=== PATIENT | male | born 1980 | race Caucasian/White ===

== ENCOUNTER 2024-01-28 13:00 | Outpatient (RCR) | payer BC, SELFPAY | END 2024-04-03 15:47 | disposition home or self-care (01) | PROVIDERS: PCP Family Medicine; Visit Provider Family Medicine | DX: M76.61 Achilles tendinitis, right leg (principal); M79.661 Pain in right lower leg; Z51.89 Encounter for other specified aftercare | CPT/HCPCS: 97110; 97140; 97161 ==

== ENCOUNTER 2024-09-26 07:18 | Outpatient (CLI) | payer BC, SELFPAY ==
--- NOTE | 2024-09-26 08:17 | W.ANESCHARGE ---
Anesthesia Charges Start Date/Time Anesthesia Start Date: 09/26/24 Anesthesia Start Time: 07:51 Stop Date/Time Anesthesia Stop Date: 09/26/24 Anesthesia Stop Time: 08:21 Coding CPT Codes CPT Codes: ANES LWR INTST NDSC NOS - 45454 ([id number]) P3 - PATIENT W/SEVERE SYS DISEASE, QX - PUTTY MIXER SVC W/ MD MED DIRECTION, QK - TIRE WRAPPER 2-4 CNCRNT ANES PROC
--- NOTE | 2024-09-26 08:19 | W.ANESCHARGE ---
Anesthesia Charges Start Date/Time Anesthesia Start Date: 09/26/24 Anesthesia Start Time: 07:51 Stop Date/Time Anesthesia Stop Date: 09/26/24 Anesthesia Stop Time: 08:21 Coding CPT Codes CPT Codes: ANES LWR INTST NDSC NOS - 13286 ([id number]) QK - RN TELEPHONIC 2-4 CNCRNT ANES PROC, QX - ORACLE MANUFACTURING CONSULTANT SVC W/ MED DIRECTION, P3 - PATIENT W/SEVERE SYS DISEASE
== END 2024-09-26 07:19 | disposition home or self-care (01) ==
LOC: OP CLINIC 07:20
PROVIDERS: PCP Surgery; Visit Provider Internal Medicine Gastroenterology
DX: Z12.11 Encounter for screening for malignant neoplasm of colon (principal); D12.0 Benign neoplasm of cecum; D12.3 Benign neoplasm of transverse colon; D12.5 Benign neoplasm of sigmoid colon; K57.30 Diverticulosis of large intestine without perforation or abscess without bleeding
CPT/HCPCS: 00811; 45385; 88305; J2704

== ENCOUNTER 2025-02-12 13:56 | Emergency (ER) | payer BC, SELFPAY ==
--- OUTSIDE RECORDS SUMMARY | 2025-02-12 13:57 | XMS_ITS | Clinical Summary ---
Author Organization [facility] Address [address] [place] [id number] Care Team Providers Care Bilingual Office Assistant Name Role Phone Rupreto Duff MD Primary Care Provider [phone] Allergies Active Allergy Reactions Criticality Noted Date Comments House Dust 12/09/2010 Medications aspirin chewable 81 mg chewable tablet Take 81 mg by mouth once daily with a meal. Active DMEIndications:S easonal affective disorder Phototherapy Light box. Use 10-15 minutes daily for seasonal affective disorder. Can increase to 30 minutes twice daily as needed. 1 box 7 Active atorvastatin (LIPITOR) 40 mg tabletIndication s:Coronary artery disease involving elem heart without angina pectoris, unspecified vessel or lesion type Take 1 Tablet (40 mg) by mouth once daily. 90 Tablet 3 4 Active losartan (COZAAR) 100 mg tabletIndication s:Essential hypertension Take 1 Tablet (100 mg) by mouth once daily. 90 Tablet 3 4 Active Additional Information Patient not taking.Reported on 02/10/2025 omeprazole (PRILOSEC) 20 mg Delayed-Release capsuleIndicatio ns:Chronic GERD Take 1 Capsule (20 mg) by mouth once daily before a meal. 90 Capsule 3 4 Active polyethylene glycol-electroly te (GOLYTELY) 236-22.74-6.74 -5.86 gram suspensionIndica tions:Encounter for screening colonoscopy Drink 2 liters the day before the procedure and 2 liters 6 hours prior to procedure. 4000 mL 4 Active Additional Information Patient not taking.Reported on 02/10/2025 hydroCHLOROthiaz mavis 12.5 mg tabletIndication s:Essential hypertension Take 1 Tablet (12.5 mg) by mouth once daily. 90 Tablet 3 Active Additional Information Patient not taking.Reported on 02/10/2025 losartan-hydroch lorothiazide 100-12.5 mg tabletIndication s:Essential hypertension Take 1 Tablet by mouth once daily. 90 Tablet 3 Active Hospital, Clinic, or Other Facility Administered Medication Ordered Dose Route Frequency Start Date End Date Status ketorolac 60 mg/2 mL injection 60 mgIndications:Fever, unspecified fever cause 60 mg IM ONE TIME 02/10/2025 02/10/2025 E nded Active Problems Problem Noted Date Diagnosed Date Colon polyp 09/30/2024 Overview (09/30/2024): Colonoscopy 09/2024 large TA, repeat in 3 years Foraminal stenosis of lumbosacral region 021 Overview (06/30/2021): Bilateral L5-S1, mild disc degeneration Essential hypertension 07/22/2018 Coronary artery disease invo lving elem heart without angina pectoris 07/22/2018 S/P PTCA (percutaneous transluminal coronary ang ioplasty) 07/22/2018 Seasonal affective disorder 12/17/2015 Pure hyperglyceridemia 12/14/2015 Seasonal allergies 12/09/2010 Resolved Problems Problem Noted Date Diagnosed Date Resolved Date Obesity (BMI 30-39.9) 12/17/20152016 Encounters Date Type Department Care Team Description 02/10/2025 7:50 AM CDT Office Visit [facility] [address] [place] [address] Delicia Adrian PA Headache 02/10/2025 Travel from Last 3 Months Immunizations Immunization Administration Dates Next Due AMB Influenza, IIV4 PF (=>6 mos Flulaval,Fluzone Fluarix)(Flu Clinic Only) 06/14/2020,05/24/2018,06/17/2016,2014,06/18/2014 COVID-19 VACCINE SPIKEVAX (M ODERNA 50MCG/0.5ML) 12YO+ PFS 06/24/2024,05/29/2023 COVID-19 vaccine (Moderna 100mcg/0.5mL) PF, MDV 11/08/2020,10/11/2020 COVID-19 vaccine (Moderna Adi indy 50mcg/0.25mL) PF, MDV 06/06/2021 COVID-19 vaccine (Pfizer-Bio NTech 30mcg/0.3mL) 12YO+ BIVALENT PF, MDV 06/05/2022 INFLUENZA, IIV3 PF (AGE >= 6 MO) 06/24/2024 Influenza A (H1N1), Inactivated 08/27/2009 Influenza A (H1N1), Inactiva ruddy (Age >=3 Years) 08/27/2009 Influenza Virus, Unspecified 06/06/2011 Influenza, IIV3 (Age 6-35 mos) 05/24/2009 Influenza, IIV3 (Age >=3 years) 09/04/2013 Influenza, IIV4 05/29/2023,,06/27/2021,2018,07/21/2017 MMR 01/05/1992 Pneumococcal Conj 20-valent (Prevnar 20) 06/05/2022 Td (Age >=7 Years) 01/24/1994 Tdap 09/12/2024,06/13/2013,10/07/2008 Family History Medical History Relation Name Comments Good Health Father Barry Monzon Good Health Mother Isabella Monzon Cancer-colon No Family History Heart Disease No Family History Relation Name Status Comments Brother Alive Father Barry Monzon Alive Mother Isabella Monzon Alive Sister Alive Social History Tobacco Use Types Packs/Day Years Used Date Smoking Tobacco: Never Smokeless Tobacco: Never Tobacco Cessation:Counseling Given: Not Answered Alcohol Use Standard Drinks/Week Comments Yes 0.8 (1 standard drink = 0.6 oz p ure alcohol) occ PHQ-2 Answer Date Recorded PHQ-2 TOTAL SCORE 0 06/24/2024 Social Connections Answer Date Recorded Do you often feel lonely or isolated from those around you? 0 02/10/2025 Financial Resource Strain Answer Date R ecorded Difficulty of Paying Living Expenses 3 02/10/2025 Difficulty of Paying Living Expenses Not on file 02/10/2025 Food Insecurity Answer Date Recorded Do you worry your food will run out before you are able to buy more? 1 02/10/2025 Transportation Needs Answer Date Record ed Does lack of transportation keep you from medica l appointments? 1 02/10/2025 Does lack of transportation keep you from work, meetings or getting things that you need? 1 02/10/2025 Housing Stability Answer Date Recorded What is your housing situation today? 1 02/10/2025 Utilities Answer Date Recorded Do you have trouble paying f or utilities (for example, heat, electricity, water, phone)? 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 on file Not on file Not on [employer] Obstetrics History Last Filed Vital Signs Vital Sign Reading Time Taken Comments Blood Pressure 145/93 02/10/2025 7:44 AM CDT Pulse 110 02/10/2025 7:44 AM CDT Temperature 37.7 C (99.9 F) 02/10/2025 7:44 AM CDT Respiratory Rate 16 03/15/2023 9:23 AM CDT Oxygen Saturation 94% 02/10/2025 7:44 AM CDT Inhaled Oxygen Concentration - - Weight 106 kg (233 lb 11.2 oz) 02/10/2025 7:44 A M CDT Height 181.2 cm (5' 11.34) 06/24/2024 4:[address] Body Mass Index 32.29 06/24/2024 4:14 PM ORTHOPEDIC NURSE Plan of Treatment Health Maintenance Due Date Last Done Comments Hepatitis B series for 19+ ( 1 of 3 - 19+ 3-dose series) 1998 Influenza Vaccine (#1) 2025 , 05/29/2023, 06/05/2022, Additional history exists BMI (ht and wt on same day) for age 18+ 06/24/2025 06/24/2024, 11/30/2023, 05/29/2023, Additional history exists Depression screening for age 12+ 06/24/2025 06/24/2024, 05/29/2023, 06/07/2022, Additional history exists Colonoscopy through age 75 09/26/202709/26, 09/26/2024, 09/26/2024, Additional history exists Lipids for age 45-75 08/18/2029 08/18/2024, 08/18/2024, 06/24/2024, Additional history exists Tetanus booster 09/12/2034 09/12/2024, 03/2013, 10/07/2008, Additional history exists Hepatitis C screening for ag e 18-79 Completed 06/05/2022 Pneumococcal series for age 6-49 Completed 06/05/20 HIV for age 15-65 Completed 05/29/2023 COVID-19 vaccine series Completed 06/24/20 24, 05/29/2023, 06/05/2022, Additional history exists Procedures Procedure Name Priority Date/Time Associated Diagnosis Comments COVID/FLU/RSV PANEL Routine 02/10/2025 8 :03 AM CDT Fever, unspecified fever cause COLONOSCOPY SCREENING Routine 09/26/2024 8:10 AM ORTHOPEDIC NURSE Screen for colon cancer LIPID PANEL Routine 08/18/2024 10:12 AM ORTHOPEDIC NURSE Hypertriglyceridemia ANTI HIV 1/2 Routine 05/29/2023 1:49 PM CDT Screening for HIV (human immunodeficiency virus) ANTI HCV Routine 06/05/2022 2:59 PM CDT Need for hepatitis C screening test from Last 3 Months or Most Recently Relevant to Health Maintenance Results * COVID/FLU/RSV PANEL (02/10/2025 8:03 AM CDT) COVID 19 [facility] MOLECULAR Negative Negative 02/10/2025 6:03 PM CDT [facility] INFLUENZA A PCR Negative 5 6:03 PM CDT [facility] INFLUENZA B PCR Negative 5 6:03 PM CDT [facility] Respiratory Syncytial Virus Negative 02/10/2025 6:03 PM CDT [facility] Swab NASOPHARYNGEAL SWAB / Unknown Non-Blood / Unknown 02/10/2025 8:03 AM CDT 02/10/2025 8:03 AM CDT Delicia PORTER MICROBIOLOGY Final Result [facility] [address] [place] [address], [place] * SCAN-COLONOSCOPY (09/26/2024 12:00 AM ORTHOPEDIC NURSE) us Scanner OTHER Final Result * (ABNORMAL) LIPID PANEL (08/18/2024 10:12 AM ORTHOPEDIC NURSE) CHOLESTEROL, TOTAL 151 <200 mg/dL [facility] HDL CHOLESTEROL 47 > OR = 40 mg/dL [facility] TRIGLYCERIDES 258(H) <150 mg/dL [facility] Comment: If a non-fasting specimen was collected, consider repeat triglyceride testing on a fasting specimen if clinically indicated. Lotus et al. J. of Clin. Lipidol. 2015;9:129-169. LDL-CHOLESTEROL 70 mg/dL (calc) [facility] Comment: Reference range: <100 Desirable range <100 mg/dL for primary prevention; <70 mg/dL for patients with CHD or diabetic patients with > or = 2 CHD risk factors. LDL-C is now calculated using the Temo-Harjinder calculation, which is a validated novel method providing better accuracy than the Friedewald equation in the estimation of LDL-C. Temo SS et al. WILMA. 2013;310(19): 4547-6597 (http://education.[employer]/faq/GMY559) CHOL/HDLC RATIO 3.2 <5.0 (calc) [facility] NON HDL CHOLESTEROL 104 <130 mg/dL (calc) [facility] Comment: For patients with diabetes plus 1 major ASCVD risk factor, treating to a non-HDL-C goal of <100 mg/dL (LDL-C of <70 mg/dL) is considered a therapeutic option. Blood BLOOD SPECIMEN / Unknown 08/18/2024 10:12 AM ORTHOPEDIC NURSE 08/18/2024 10:13 AM ORTHOPEDIC NURSE Ruperto Duff MD CHEMISTRY Final Resu lt [facility] [address] [place] [address], [place] [phone] [facility] [address] [place] [address] * ANTI HIV 1/2 [25392.0] (05/29/2023 1:49 PM CDT) Pathologist [facility] HIV-1/HIV-2 SCREEN Non-Reacti ve Non-Reacti ve 05/29/2023 10:23 PM CDT [facility] Comment:HIV-1 p24 and HIV-1/ HIV-2 Ab Not Detected. Blood BLOOD SPECIMEN / Unknown Venipuncture / Unknown 05/29/2023 1:49 PM CDT 05/29/2023 1:50 PM CDT Ruperto Duff MD SEND OUTS Final Resu lt [facility] [address] [place] [address], * ANTI HCV (06/05/2022 2:59 PM CDT) [facility] HEPATITIS C ANTIBODY Non-React ella Non-React ella 06/06/2022 12:41 PM CDT [facility] Comment:Antibodies to HCV no t detected; does not exclude the possibility of exposure to HCV. Blood BLOOD SPECIMEN / Unknown Venipuncture / Unknown 06/05/2022 2:59 PM CDT 06/05/2022 3:00 PM CDT Ruperto Duff MD SEND OUTS Final Resu lt [facility] [address] [place] [address], from Last 3 Months or Most Recently Relevant to Health Maintenance Insurance [facility] Care Teams Bilingual Office Assistant Relationship Specialty Start Date End Date Ruperto Duff MD [address] [place] [address] PCP - General Family Practice 06/05/22
[2025-02-12 13:59] VITALS: BP 136/97; PULSE 95; RESP 18; TEMP 37.8; O2SAT 95; BMI 31.6
--- NOTE | 2025-02-12 14:10 | ED.FEVER ---
HPI - Fever General Time Seen by Provider: 14:10 Date Seen: 02/12/25 Chief Complaint: Fever Stated Complaint: fever Time Seen by Provider: 02/12/25 14:10 Source: patient, RN notes reviewed and old records reviewed Mode of arrival: ambulatory Limitations: no limitations Related Data Allergies Allergy/AdvReac Type Severity Reaction Status Date / Time house dust Allergy Verified 09/26/24 08:20 Exam Const Vital Signs, click to edit/add: Vital Signs - 24 hr 02/12/25 13:59 Temperature 100.1 F H Pulse Rate [Left Radial] 95 Respiratory Rate 18 Blood Pressure [Left Upper Arm] 136/97 H Pulse Oximetry 95 Oxygen Delivery Method Room Air Course Vital Signs Vital signs: Initial Vital Signs Temperature 100.1 F H 02/12/25 13:59 Temperature Source Temporal Artery Scan 02/12/25 13:59 Pulse Rate 95 02/12/25 13:59 Pulse Rhythm Regular 02/12/25 13:59 Respiratory Rate 18 02/12/25 13:59 Blood Pressure 136/97 H 02/12/25 13:59 Blood Pressure Mean 110 H 02/12/25 13:59 Pulse Oximetry 95 02/12/25 13:59 Oxygen Delivery Method Room Air 02/12/25 13:59 Vital Signs Temperature 100.1 F H 02/12/25 13:59 Pulse Rate 95 02/12/25 13:59 Respiratory Rate 18 02/12/25 13:59 Blood Pressure 136/97 H 02/12/25 13:59 Pulse Oximetry 95 02/12/25 13:59 Oxygen Delivery Method Room Air 02/12/25 13:59 Temperature 100.1 F H 02/12/25 13:59 Pulse Rate 95 02/12/25 13:59 Respiratory Rate 18 02/12/25 13:59 Blood Pressure 136/97 H 02/12/25 13:59 Pulse Oximetry 95 02/12/25 13:59 Oxygen Delivery Method Room Air 02/12/25 13:59 Discharge Plan Discharge Follow Up/Referrals: Ruperto Duff MD [Primary Care Provider, Family Practice]
--- NOTE | 2025-02-12 14:31 | ED_ITS ---
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 Patient notes the onset of a fever on Sunday evening February 09. He had had some mild neck pain that night as well while driving home from work. The following morning he had a fever of 102. This was associated with a headache that would come and go. He was seen in the clinic on Sunday by a good friend GERMAN Adrian and at that time was given Toradol. COVID and RSV were negative. No blood work was done at that time. Was told that the neck pain seems to be more soreness than stiffness. And he was instructed to continue to monitor. The fever has continued up to 102 at time. Neck pain is much improved. Headache still comes and goes. No congestion sore throat chest pain shortness of breath cough dysuria abdominal pain. 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. Again no rashes. No others sick contacts in the household. Denies abdominal pain nausea vomiting or diarrhea. No dysuria. No IV drug use. Related Data Allergies Allergy/AdvReac Type Severity Reaction Status Date / Time house dust Allergy Verified 09/26/24 08:20 Review of Systems Status of ROS Reports: 10 or more systems reviewed and unremarkable except as noted in History and below Const Reports: fever, chills and fatigue (Significant) Eyes Denies: change in vision or eye discharge ENMT Reports: neck pain (Much improved); Denies: throat pain, throat swelling, difficulty swallowing, nasal discharge or nasal congestion Cardio Denies: chest pain, palpitations, swelling of feet/ankles or shortness of breath with exertion Resp Denies: shortness of breath or cough GI Denies: abdominal pain, nausea, vomiting, diarrhea or difficulty swallowing Denies: painful urination, urinary frequency, urinary urgency or blood in urine Musculo Reports: neck pain (Much improved); Denies: back pain or extremity pain Integ/Breast Denies: rash, redness or jaundice Neuro Reports: headache; Denies: numbness in extremities or weakness in extremities Endo Reports: fatigue (Significant) Allergy/Immuno Denies: throat swelling Exam Narrative Exam Narrative: Alert and oriented. Nontoxic in appearance. Eyes are clear. Face symmetrical. Speech mentation normal. Oral cavity moist mucous membranes. Posterior oropharynx without erythema or exudate. No trismus. Anterior cervical chain without lymphadenopathy. Neck is supple range of motion is full to chest and flexion without any discomfort. Heart with a regular rate and rhythm. No murmur is auscultated. Lungs are clear bilaterally. Abdomen is soft nontender especially right upper quadrant. Lower extremities show no evidence of edema erythema unusual rashes or evidence of tick bites or petechiae. No axillary lymphadenopathy. Const Vital Signs, click to edit/add: Vital Signs - 24 hr 02/12/25 13:59 02/12/25 17:04 Temperature 100.1 F H Pulse Rate [Left Radial] 95 81 Respiratory Rate 18 16 Blood Pressure [Left Upper Arm] 136/97 H 126/80 Pulse Oximetry 95 95 Oxygen Delivery Method Room Air Room Air Documenting provider has reviewed patient's vital signs: yes Course Course ED Course: Differential diagnosis includes but is not limited to pneumonia viral infection viral syndrome West Nile, tick-borne illness, mono, UTI, strep, COVID influenza RSV. At this time will place IV give 1 L of saline, 15 mg of IV Toradol. Will check CBC, comprehensive panel, CRP, urinalysis, West Nile Lyme disease tick borne panel mono strep COVID influenza RSV. Chest x-ray has also been ordered. No evidence of meningitis or meningeal signs. Reevaluation(s) Reevaluation #1: Patient noted to be feeling better after IV fluids and Toradol. Patient has a mild leukopenia with a white count of 3.97, normal hemoglobin. Patient has platelets at [id number] with 140,000 be in the low limit of normal. Chemistry panel within normal limits with potassium 3.8 creatinine of 1.1. He does have a mild elevation of his AST to 81 ALT to 95. Will send off hepatitis panel as well. His CRP is elevated 2.6. Urinalysis without evidence of UTI. His COVID influenza and RSV as well as strep are all negative. Vital Signs Vital signs: Initial Vital Signs Temperature 100.1 F H 02/12/25 13:59 Temperature Source Temporal Artery Scan 02/12/25 13:59 Pulse Rate 95 02/12/25 13:59 Pulse Rhythm Regular 02/12/25 13:59 Respiratory Rate 18 02/12/25 13:59 Blood Pressure 136/97 H 02/12/25 13:59 Blood Pressure Mean 110 H 02/12/25 13:59 Pulse Oximetry 95 02/12/25 13:59 Oxygen Delivery Method Room Air 02/12/25 13:59 Vital Signs Temperature 100.1 F H 02/12/25 13:59 Pulse Rate 95 02/12/25 13:59 Respiratory Rate 18 02/12/25 13:59 Blood Pressure 136/97 H 02/12/25 13:59 Pulse Oximetry 95 02/12/25 13:59 Oxygen Delivery Method Room Air 02/12/25 13:59 Temperature 100.1 F H 02/12/25 13:59 Pulse Rate 81 02/12/25 17:04 Respiratory Rate 16 02/12/25 17:04 Blood Pressure 126/80 02/12/25 17:04 Pulse Oximetry 95 02/12/25 17:04 Oxygen Delivery Method Room Air 02/12/25 17:04 Medications Administered Medications: Discontinued Medications Generic Name Dose Route Start Last Admin Trade Name Freq PRN Reason Stop Dose Admin Sodium Chloride 1,000 mls @ 1,000 mls/hr 02/12/25 14:45 02/12/25 16:22 0.9 % Sodium Chloride 1000 Ml IV 02/12/25 15:44 Infused .Q1H ASHLEY Infusion Ketorolac Tromethamine 15 mg 02/12/25 14:44 02/12/25 15:07 Ketorolac 15 Mg/Ml Inj IVP 02/12/25 14:45 15 mg ONCE ONE Administration MDM - Fever MDM Narrative Medical decision making narrative: 1. Fever of unknown origin-this time I do have a strong suspicion of either tick-borne illness or West Nile with the mild leukopenia as well as the depressed platelet count. Prior to discharge patient did have blood cultures drawn. We were able to rule out COVID influenza and RSV as well as strep. A mono was negative but of course this early in the illness it could be a false negative. Currently pending are West Nile, Lyme panel and tick-borne illness panel as well as blood cultures. Given elevation of LFTs have also sent off a hepatitis panel although recent travel history does not suggest hepatitis. I have started patient on doxycycline 100 mg p.o. b.i.d. pending these results. He is receiving a 7 day course but may need to extend treatment based on findings. 2. Questionable pneumonia- My read of the x-ray was that he did have bilateral infiltrates. Radiological over-read was negative for acute findings and I did speak with radiologist who feels that what I am seeing is pulmonary vasculature that is enhanced based on low lung volumes. Doxycycline of course would treat atypical pneumonia in this case. If patient does have onset of a cough continued symptoms I think a CT of the chest with contrast would be helpful. 3. Disposition-home at this time. Patient will be starting doxycycline today. I did contact him to explain that the platelets were minimally depressed. I would like to have him follow-up with his primary on Sunday for a redraw of his labs. Of course, should he have worsening symptoms would have him return to the emergency room for further evaluation. Labs to redraw include a CBC and comprehensive panel as he also had a mild elevation of his LFTs. Medical Records Attestation: I reviewed the patient's medical records. Lab Data Attestation: I reviewed the patient's lab results. Labs: Lab Results 02/12/25 02/12/25 02/12/25 Range/Units 14:55 15:15 15:31 WBC 3.97 L (4.50-11.00) K/uL RBC 5.36 (4.30-5.90) m/uL Hgb 16.9 (13.5-17.5) gm/dL Hct 48.8 (37.0-53.0) % MCV 91 (80-100) fL MCH 32 (26-34) pg MCHC 35 (32-36) gm/dL RDW Coeff of Justo 11.3 L (11.5-15.5) % Plt Count 139 L (140-440) K/uL Neut % (Auto) 60.0 (42.0-72.0) % Lymph % (Auto) 18.4 L (20-44) % [place] % (Auto) 20.2 H (0.0-11.0) % Eos % (Auto) 0.3 (0.0-7.0) % Baso % (Auto) 0.8 (0.0-3.0) % Neut # (Auto) 2.40 (1.7-7.0) K/uL Lymph # (Auto) 0.70 L (0.90-2.90) K/uL [place] # (Auto) 0.80 (0.00-0.90) K/UL Eos # (Auto) 0.00 (0.00-0.50) K/uL Baso # (Auto) 0.00 (0.00-0.30) K/uL Abs Immat Gran (auto) 0.00 (0.00-0.30) K/uL Imm/Tot Granulo (auto) 0.3 % Sodium 136 (135-149) mmol/L Potassium 3.8 (3.6-5.1) mmol/L Chloride 100 (96-114) mmol/L Carbon Dioxide 29 (20-32) mmol/L Anion Gap 7 (7-15) mEq/L BUN 12 (5-24) mg/dL Creatinine 1.1 (0.5-1.5) mg/dL Estimated Creat Clear 93.08 Estimated GFR 84 ml/min Glucose 101 (60-115) mg/dL Calcium 9.4 (8.4-10.6) mg/dL Total Bilirubin 1.1 (0.1-1.5) mg/dL AST 81 H (12-35) U/L ALT 95 H (4-50) U/L Alkaline Phosphatase 90 (40-150) U/L C-Reactive Protein 2.6 H (0.5-1.0) mg/dL Total Protein 8.0 (6.0-8.3) g/dL Albumin 4.6 (3.3-5.0) g/dL Urine Color Yellow (Yellow) Urine Appearance Clear (Clear) Urine pH 6.0 (5.0-8.5) Ur Specific [place] 1.015 (1.000-1.030) Urine Protein 1+ A (Negative) Urine Glucose (UA) Negative (Negative) Urine Ketones Negative (Negative) Urine Blood Negative (Negative) Urine Nitrite Negative (Negative) Urine Bilirubin 1+ A (Negative) Urine Urobilinogen 4.0 A (0.2-1.0) Ur Leukocyte Esterase Negative (Negative) Urine RBC 0-2 (0-2) Urine WBC 0-2 (0-5) Ur Squamous Epith Cells None (None-Few) Amorphous Sediment Few A (None) Urine Bacteria None (None) SARS-CoV-2 (PCR) Negative SARS-CoV-2 (Negative) Monoscreen Negative (Negative) Influenza Type A (PCR) Negative PCR FLU A (Negative) Influenza Type B (PCR) Negative PCR FLU B (Negative) RSV (PCR) Negative PCR RSV (Negative) Group A Strep DNA NOT DETECTED (Not Detectd) Lab Acknowledgement Test Added 02/12/25 Range/Units 17:46 WBC (4.50-11.00) K/uL RBC (4.30-5.90) m/uL Hgb (13.5-17.5) gm/dL Hct (37.0-53.0) % MCV (80-100) fL MCH (26-34) pg MCHC (32-36) gm/dL RDW Coeff of Justo (11.5-15.5) % Plt Count (140-440) K/uL Neut % (Auto) (42.0-72.0) % Lymph % (Auto) (20-44) % [place] % (Auto) (0.0-11.0) % Eos % (Auto) (0.0-7.0) % Baso % (Auto) (0.0-3.0) % Neut # (Auto) (1.7-7.0) K/uL Lymph # (Auto) (0.90-2.90) K/uL [place] # (Auto) (0.00-0.90) K/UL Eos # (Auto) (0.00-0.50) K/uL Baso # (Auto) (0.00-0.30) K/uL Abs Immat Gran (auto) (0.00-0.30) K/uL Imm/Tot Granulo (auto) % Sodium (135-149) mmol/L Potassium (3.6-5.1) mmol/L Chloride (96-114) mmol/L Carbon Dioxide (20-32) mmol/L Anion Gap (7-15) mEq/L BUN (5-24) mg/dL Creatinine (0.5-1.5) mg/dL Estimated Creat Clear Estimated GFR ml/min Glucose (60-115) mg/dL Calcium (8.4-10.6) mg/dL Total Bilirubin (0.1-1.5) mg/dL AST (12-35) U/L ALT (4-50) U/L Alkaline Phosphatase (40-150) U/L C-Reactive Protein (0.5-1.0) mg/dL Total Protein (6.0-8.3) g/dL Albumin (3.3-5.0) g/dL Urine Color (Yellow) Urine Appearance (Clear) Urine pH (5.0-8.5) Ur Specific [place] (1.000-1.030) Urine Protein (Negative) Urine Glucose (UA) (Negative) Urine Ketones (Negative) Urine Blood (Negative) Urine Nitrite (Negative) Urine Bilirubin (Negative) Urine Urobilinogen (0.2-1.0) Ur Leukocyte Esterase (Negative) Urine RBC (0-2) Urine WBC (0-5) Ur Squamous Epith Cells (None-Few) Amorphous Sediment (None) Urine Bacteria (None) SARS-CoV-2 (PCR) (Negative) Monoscreen (Negative) Influenza Type A (PCR) (Negative) Influenza Type B (PCR) (Negative) RSV (PCR) (Negative) Group A Strep DNA (Not Detectd) Lab Acknowledgement Test Added Imaging Data Chest x-ray: Attestation: I have reviewed the pertinent imaging results. My impression: My review shows increased lung markings in the right lower lung, retrocardiac. Radiologist's impression: Mediastinum: The mediastinum is normal in appearance. The heart silhouette is normal in size and morphology. Lung: Both lungs are unremarkable in appearance with small lung volumes. No sign of pleural effusion seen. No pneumothorax is identified. Bone and Soft tissue: Unremarkable for age. IMPRESSION: 1. No acute cardiopulmonary disease is seen. Discharge Plan Discharge Clinical Impression: Fever, unknown origin Patient Disposition: Home, Self-Care Condition: Improved Additional Instructions: Start doxycycline today and continue twice daily for the next 7 days. I did speak with radiologist and he does not feel that this represents pneumonia on the x-ray. However, if you are not improving I would recommend a CT of the chest to ensure there is indeed no evidence of infection. We will have to await the results for West Nile, Lyme, other tick-borne illness panels and the blood culture. Please do not delay returning if you are actually experiencing worsening symptoms. Negative today: [place] test (although not sensitive during the 1st 7 days of illness) COVID/RSV/influenza Strep Urinalysis (although we will be sending this for urine culture to ensure no infection. ) Even if you are improved you must follow-up with your regular clinic in the next 7 days. You will want to review the results of your pending labs. The doxycycline may need to be changed or extended an additional 7 days. Follow Up/Referrals: Ruperto Duff MD [Primary Care Provider, Family Practice] Stand Alone Forms: [employer] Info Instructions
--- NOTE | 2025-02-12 14:44 | CRLHL7_ITS ---
For Patients: As a result of the Cures Act, medical imaging exams and procedure reports are released immediately into your electronic medical record. You may view this report before your referring provider. If you have questions, please contact your health care provider. INDICATION: Fever of unknown origin TECHNIQUE: Chest radiograph 2 views COMPARISON: None FINDINGS: The sensitivity and specificity of the exam are moderately limited by the patient`s body habitus. Mediastinum: The mediastinum is normal in appearance. The heart silhouette is normal in size and morphology. Lung: Both lungs are unremarkable in appearance with small lung volumes. No sign of pleural effusion seen. No pneumothorax is identified. Bone and Soft tissue: Unremarkable for age. IMPRESSION: 1. No acute cardiopulmonary disease is seen. Dictated by: Colin Rodriguez MD @ 02/12/2025 15:41:53 (Electronically Signed)
[2025-02-12 15:07] LABS: Appearance Urine Clear (Clear)
[2025-02-12 15:27] LABS: Strep A DNA Probe* NOT DETECTED (Not Detectd)
[2025-02-12 15:28] LABS: Hematocrit 48.8 % (37.0-53.0); Hemoglobin* 16.9 gm/dL (13.5-17.5); Immature Granulocytes Pct Auto 0.3 %; Mean Corpuscular HGB Conc 35 gm/dL (32-36); Mean Corpuscular Hemoglobin 32 pg (26-34); Mean Corpuscular Volume 91 fL (80-100); RDW Coefficient of Variation % 11.3 % (11.5-15.5); Red Blood Count 5.36 m/uL (4.30-5.90); White Blood Count* 3.97 K/uL (4.50-11.00)
[2025-02-12 15:31] LABS: Immature Granulocytes Abs Auto 0.00 K/uL (0.00-0.30); Lymphocytes Absolute Auto 0.70 K/uL (0.90-2.90); Slide Review Reflex No
[2025-02-12 15:44] LABS: Chloride* 100 mmol/L (96-114)
[2025-02-12 15:45] LABS: Albumin* 4.6 g/dL (3.3-5.0); Potassium* 3.8 mmol/L (3.6-5.1); Sodium* 136 mmol/L (135-149)
[2025-02-12 15:46] LABS: Mono Screen* Negative (Negative)
[2025-02-12 15:47] LABS: Blood Urea Nitrogen* 12 mg/dL (5-24); Creatinine* 1.1 mg/dL (0.5-1.5); Est. Creatinine Clearance* 93.08; Estimated Glomerular Filt Rate 84 ml/min
[2025-02-12 15:48] LABS: Alanine Aminotransferase* 95 U/L (4-50); Alkaline Phosphatase* 90 U/L (40-150); Anion Gap 7 mEq/L (7-15); Aspartate Amino Transferase* 81 U/L (12-35); Bilirubin Total* 1.1 mg/dL (0.1-1.5); Calcium* 9.4 mg/dL (8.4-10.6); Carbon Dioxide* 29 mmol/L (20-32); Glucose* 101 mg/dL (60-115); Total Protein* 8.0 g/dL (6.0-8.3)
[2025-02-12 16:27] LABS: PCR FLU A Negative PCR FLU A (Negative); PCR FLU B Negative PCR FLU B (Negative); PCR RSV Negative PCR RSV (Negative); SARS PCR* Negative SARS-CoV-2 (Negative)
[2025-02-12 17:04] VITALS: BP 126/80; PULSE 81; RESP 16; O2SAT 95
[2025-02-14 16:01] LABS: Lyme ELISA Reflex 0.25 IV (<=0.90)
[2025-02-14 21:04] LABS: Anaplasma phagocyt PCR Not Detected
[2025-02-15 13:24] LABS: Hep B Surface Antigen Negative (Negative); Hep C Ab by CIA Interp Negative (Negative)
== END 2025-02-12 17:40 | disposition home or self-care (01) ==
PROVIDERS: Emergency Provider Family Medicine; PCP Surgery
DX: R50.9 Fever, unspecified (principal); M54.2 Cervicalgia; R51.9 Headache, unspecified; I25.10 Atherosclerotic heart disease of native coronary artery without angina pectoris
CPT/HCPCS: 36415; 71046; 80053; 80074; 81001; 85025; 86140; 86308; 86618; 86789; 87040; 87468; 87469; 87484; 87631; 87651; 87798; 96361; 96374; 99284; J1885; J7030